=== PATIENT | male | born 1990 | race Caucasian/White ===

== ENCOUNTER → 2017-01-07 | Outpatient (CLI) | payer OTHER ==
--- NOTE | 2017-01-07 11:35 | REP ---
RESOLUTION BILATERAL SCROTAL SONOGRAPHY: HISTORY: Right scrotal pain. FINDINGS: High-resolution bilateral scrotal sonography shows homogeneous testicular parenchyma bilaterally. Normal Doppler flow is seen on both sides. There is no evidence of torsion. Right testicular dimensions of 3.2 x 1.9 x 3.5 cm. Left testis measures 4.1 x 2.0 x 2.9 cm. There is a 0.2 cm epididymal cyst on the left. Doppler flow is normal bilaterally. Resistive indices are 0.65 and 0.67 on the right and left, respectively. IMPRESSION: No significant abnormality. Signed by Vasile Gonzáles MD 01/07/2017 05:28 P
== END ==
LOC: M RAD 10:39
PROVIDERS: ATTEND Physician Assistant
DX: N50.82 Scrotal pain (principal)

== ENCOUNTER → 2017-01-09 | Outpatient (REF) | payer OTHER | LOC: M LAB REF 09:15 | PROVIDERS: ATTEND Physician Assistant | DX: N50.819 Testicular pain, unspecified (principal) ==

== ENCOUNTER → 2019-04-12 | Outpatient (REF) | payer OTHER ==
[2019-04-12 12:14] LABS: SEMEN APPEARANCE OPAQUE (OPAQUE); SEMEN VISCOSITY LIQUID (LIQUID); SEMEN VOLUME 1.5 ml (2.0-5.0); WBC CONCENTRATION <=1 M/ml (<=1 M/ml)
== END ==
LOC: M SMT 11:38
PROVIDERS: ATTEND Urology
DX: Z98.52 Vasectomy status (principal)